=== PATIENT | male | born 1990 | race African-American/Black ===

== ENCOUNTER 2025-01-12 08:45 | Emergency (ER) | payer SELFPAY | END 2025-01-12 09:11 | disposition home or self-care (01) | LOC: CSHERS 08:45 | DX: H60.12 Cellulitis of left external ear (principal); J45.909 Unspecified asthma, uncomplicated | CPT/HCPCS: 99282 ==

== ENCOUNTER 2025-01-13 17:05 | Emergency (ER) | payer SELFPAY | END 2025-01-13 17:38 | disposition home or self-care (01) | LOC: CSHERS 17:05 | DX: L03.211 Cellulitis of face (principal) | CPT/HCPCS: 99283 ==